=== PATIENT | female | born 1935 | race Caucasian/White ===

== ENCOUNTER 2017-05-21 16:52 | Inpatient (IN) | payer OTHER ==
[~2017-05-21] VITALS: Ht 165.1 cm; Wt 70.7 kg
[2017-05-21] MEDS ORDERED: SODIUM CHLORIDE FLUSH 10ML SYR IVF ONE (17:30)
[2017-05-21 17:43] LABS: BASOPHILS # (AUTO) 0.03 x10^3/uL (0-0.1); BASOPHILS % (AUTO) 0 % (0-1); EOSINOPHILS # (AUTO) 0.01 x10^3/uL (0-0.4); EOSINOPHILS % (AUTO) 0 % (1-7); LYMPHOCYTES # (AUTO) 1.27 x10^3/uL (1-3.4); LYMPHOCYTES % (AUTO) 17 % (22-44); MD NO; MEAN CORPUSCULAR HEMOGLOBIN 30.7 pg (27.0-34.8); MEAN CORPUSCULAR HGB CONC 33.5 g/dL (32.4-35.8); MEAN CORPUSCULAR VOLUME 91.5 fL (80-100); MEAN PLATELET VOLUME 7.4 fL (7.4-10.4); MONOCYTES # (AUTO) 0.37 x10^3/uL (0.2-0.8); MONOCYTES % (AUTO) 5 % (2-9); NEUTROPHILS # (AUTO) 5.95 x10^3/uL (1.8-6.8); NEUTROPHILS % (AUTO) 78 % (42-75); PLATELET COUNT 228 x10^3/uL (130-400); RED BLOOD COUNT 5.49 x10^6/uL (3.82-5.3); RED CELL DISTRIBUTION WIDTH 13.6 % (9.6-15.2)
[2017-05-21 17:49] LABS: ALANINE AMINOTRANSFERASE 7 U/L (12-78); ALBUMIN 3.7 g/dL (3.4-5.0); ANION GAP 9 mmol/L (5-15); CALCIUM 9.2 mg/dL (8.5-10.1); CHLORIDE 110 mmol/L (98-107); CREATININE 0.73 mg/dL (0.55-1.02)
[2017-05-21 17:51] LABS: ALKALINE PHOSPHATASE 53 U/L (45-117); BILIRUBIN,TOTAL 0.6 mg/dL (0.2-1.0); TOTAL PROTEIN 7.4 g/dL (6.4-8.2)
[2017-05-21 17:59] LABS: MICROSCOPIC INDICATED
[2017-05-21] MEDS ORDERED: CEFTRIAXONE PMX 1GM/50ML 50 ML ONE (18:11)
[2017-05-21 18:16] LABS: CULTURE INDICATED? YES
[2017-05-21] MEDS ORDERED: CEFTRIAXONE PMX 1GM/50ML 50 ML IVPB ONE (18:30)
[2017-05-21] MEDS ORDERED: LEVO88TA2 PO (20:30)
[2017-05-21] MEDS ORDERED: SIMV20TA3 PO (20:30)
[2017-05-21] MEDS ORDERED: DULO30CA2 PO (20:30)
[2017-05-21] MEDS ORDERED: GABA300C10 PO (20:30)
[2017-05-21] MEDS ORDERED: CYCL5TAB PO (20:30)
[2017-05-21] MEDS ORDERED: HYDR-3240 PO (20:30)
[2017-05-21] MEDS ORDERED: ESOM20CA PO (20:30)
[2017-05-21] MEDS ORDERED: CARB1TAB44 PO (20:30)
[2017-05-21] MEDS ORDERED: HYDROcodone/APAP 5/325 TABLET PO ONE (20:30)
[2017-05-21] MEDS ORDERED: CLON0.5T20 PO (20:30)
[2017-05-21] MEDS ORDERED: HYDROcodone/APAP 5/325 TABLET ONE (20:37)
[2017-05-21] MEDS ORDERED: ONDANSETRON 2MG/ML, 2ML IVPush PRN (21:00)
[2017-05-21] MEDS: CEFTRIAXONE PMX 1GM/50ML 50 ML IV SCH (21:19)
[2017-05-21] MEDS ORDERED: OMNIPAQUE 350 MG/ML, 100ML BOTTLE ONE (21:20)
[2017-05-21] MEDS: SIMVASTATIN 20 MG TABLET PO SCH (23:15)
[2017-05-21] MEDS: MELATONIN 5 MG TABLET PO SCH (23:16)
[2017-05-21] MEDS: CARBIDOPA/LEVODOPA CR 50 MG/200 MG TABLET PO SCH (23:16)
[2017-05-21] MEDS: GABAPENTIN 300 MG CAPSULE PO SCH (23:16)
[2017-05-21] MEDS: HEPARIN 5,000 UNITS/ML, 1ML SQ SCH (23:16)
[2017-05-21] MEDS: SODIUM CHLORIDE 0.9% 1,000 ML IV SCH (23:17)
[2017-05-22 01:27] VITALS: BP 163/91
[2017-05-22 05:37] LABS: ANION GAP 7 mmol/L (5-15); CALCIUM 9.1 mg/dL (8.5-10.1); CHLORIDE 108 mmol/L (98-107)
[2017-05-22 05:42] LABS: CREATININE 0.69 mg/dL (0.55-1.02)
[2017-05-22] MEDS: LEVOTHYROXINE 88 MCG TABLET PO SCH (05:48)
[2017-05-22] MEDS: HEPARIN 5,000 UNITS/ML, 1ML SQ SCH ×3 (05:48→22:28)
[2017-05-22 07:49] VITALS: BP 151/79
[2017-05-22] MEDS: GABAPENTIN 300 MG CAPSULE PO SCH ×3 (10:23→22:28)
[2017-05-22] MEDS: DULOXETINE 30 MG CAPSULE.DR PO SCH (10:23)
[2017-05-22] MEDS: CARBIDOPA/LEVODOPA CR 50 MG/200 MG TABLET PO SCH ×3 (10:23→22:28)
[2017-05-22 13:46] VITALS: BP 96/66
[2017-05-22] MEDS: SODIUM CHLORIDE 0.9% 1,000 ML IV SCH (16:19)
[2017-05-22] MEDS: CYCLOBENZAPRINE 10 MG TABLET PO PRN (18:27)
[2017-05-22 19:41] VITALS: BP 105/75
[2017-05-22] MEDS: MELATONIN 5 MG TABLET PO SCH (22:28)
[2017-05-22] MEDS: SIMVASTATIN 20 MG TABLET PO SCH (22:28)
[2017-05-22] MEDS: CEFTRIAXONE PMX 1GM/50ML 50 ML IV SCH (22:43)
[2017-05-23 00:35] VITALS: BP 166/83
[2017-05-23 05:00] LABS: BASOPHILS # (AUTO) 0.03 x10^3/uL (0-0.1); BASOPHILS % (AUTO) 0 % (0-1); EOSINOPHILS # (AUTO) 0.03 x10^3/uL (0-0.4); EOSINOPHILS % (AUTO) 0 % (1-7); LYMPHOCYTES # (AUTO) 2.39 x10^3/uL (1-3.4); LYMPHOCYTES % (AUTO) 33 % (22-44); MD NO; MEAN CORPUSCULAR HEMOGLOBIN 30.4 pg (27.0-34.8); MEAN CORPUSCULAR HGB CONC 32.9 g/dL (32.4-35.8); MEAN CORPUSCULAR VOLUME 92.2 fL (80-100); MEAN PLATELET VOLUME 7.4 fL (7.4-10.4); MONOCYTES # (AUTO) 0.52 x10^3/uL (0.2-0.8); MONOCYTES % (AUTO) 7 % (2-9); NEUTROPHILS # (AUTO) 4.23 x10^3/uL (1.8-6.8); NEUTROPHILS % (AUTO) 59 % (42-75); PLATELET COUNT 235 x10^3/uL (130-400); RED BLOOD COUNT 5.19 x10^6/uL (3.82-5.3); RED CELL DISTRIBUTION WIDTH 13.9 % (9.6-15.2)
[2017-05-23 05:15] LABS: ANION GAP 8 mmol/L (5-15); CALCIUM 8.9 mg/dL (8.5-10.1); CHLORIDE 111 mmol/L (98-107)
[2017-05-23 05:16] LABS: CREATININE 0.75 mg/dL (0.55-1.02)
[2017-05-23] MEDS: HEPARIN 5,000 UNITS/ML, 1ML SQ SCH ×3 (06:31→20:18)
[2017-05-23] MEDS: LEVOTHYROXINE 88 MCG TABLET PO SCH (06:31)
[2017-05-23 06:53] VITALS: BP 180/99
[2017-05-23] MEDS: GABAPENTIN 300 MG CAPSULE PO SCH ×3 (08:08→20:18)
[2017-05-23] MEDS: DULOXETINE 30 MG CAPSULE.DR PO SCH (08:08)
[2017-05-23] MEDS: CARBIDOPA/LEVODOPA CR 50 MG/200 MG TABLET PO SCH ×3 (08:09→20:18)
[2017-05-23 08:10] VITALS: BP 174/84
[2017-05-23] MEDS: POTASSIUM CHLORIDE 20 MEQ TAB.ER.PRT PO SCH ×2 (09:52→16:39)
[2017-05-23 13:48] VITALS: BP 157/75
[2017-05-23] MEDS: ACETAMINOPHEN 325 MG TABLET PO PRN ×2 (14:09→20:18)
[2017-05-23] MEDS: CYCLOBENZAPRINE 10 MG TABLET PO PRN (14:10)
[2017-05-23 14:15] LABS: CLOSTRIDIUM DIFFICILE ANTIGEN NEGATIVE; CLOSTRIDIUM DIFFICILE TOXIN NEGATIVE (Negative)
[2017-05-23 19:13] VITALS: BP 160/85
[2017-05-23] MEDS: MELATONIN 5 MG TABLET PO SCH (20:18)
[2017-05-23] MEDS: SIMVASTATIN 20 MG TABLET PO SCH (20:18)
[2017-05-23] MEDS: CEFTRIAXONE PMX 1GM/50ML 50 ML IV SCH (20:19)
[2017-05-24 00:39] VITALS: BP 159/76
[2017-05-24] MEDS: ACETAMINOPHEN 325 MG TABLET PO PRN ×3 (03:03→16:20)
[2017-05-24] MEDS: LEVOTHYROXINE 88 MCG TABLET PO SCH (05:30)
[2017-05-24] MEDS: HEPARIN 5,000 UNITS/ML, 1ML SQ SCH ×4 (05:30→20:48)
[2017-05-24 05:46] LABS: ANION GAP 9 mmol/L (5-15); CHLORIDE 113 mmol/L (98-107)
[2017-05-24 05:48] LABS: CREATININE 0.75 mg/dL (0.55-1.02)
[2017-05-24 07:10] VITALS: BP 170/110
[2017-05-24] MEDS: CARBIDOPA/LEVODOPA CR 50 MG/200 MG TABLET PO SCH ×3 (11:12→20:34)
[2017-05-24] MEDS: DULOXETINE 30 MG CAPSULE.DR PO SCH (11:13)
[2017-05-24] MEDS: GABAPENTIN 300 MG CAPSULE PO SCH ×3 (11:14→20:34)
[2017-05-24] MEDS: POTASSIUM CHLORIDE 20 MEQ TAB.ER.PRT PO SCH (11:14)
[2017-05-24] MEDS: CYCLOBENZAPRINE 10 MG TABLET PO PRN ×2 (11:15→16:20)
[2017-05-24 13:13] VITALS: BP 136/87
[2017-05-24 18:59] VITALS: BP 170/89
[2017-05-24] MEDS: CEFTRIAXONE PMX 1GM/50ML 50 ML IV SCH (20:34)
[2017-05-24] MEDS: SIMVASTATIN 20 MG TABLET PO SCH (20:34)
[2017-05-24] MEDS: MELATONIN 5 MG TABLET PO SCH (20:36)
[2017-05-25 02:53] VITALS: BP 141/84
[2017-05-25] MEDS: ACETAMINOPHEN 325 MG TABLET PO PRN ×2 (03:08→09:25)
[2017-05-25] MEDS: HEPARIN 5,000 UNITS/ML, 1ML SQ SCH ×3 (04:43→21:00)
[2017-05-25] MEDS: LEVOTHYROXINE 88 MCG TABLET PO SCH (05:56)
[2017-05-25] MEDS: CYCLOBENZAPRINE 10 MG TABLET PO PRN ×2 (06:01→09:25)
[2017-05-25 07:50] VITALS: BP 148/90
[2017-05-25] MEDS: GABAPENTIN 300 MG CAPSULE PO SCH ×3 (09:25→21:01)
[2017-05-25] MEDS: CARBIDOPA/LEVODOPA CR 50 MG/200 MG TABLET PO SCH ×3 (09:25→21:01)
[2017-05-25] MEDS: DULOXETINE 30 MG CAPSULE.DR PO SCH (09:25)
[2017-05-25 13:41] VITALS: BP 149/90
[2017-05-25 19:21] VITALS: BP 131/82
[2017-05-25] MEDS: MELATONIN 5 MG TABLET PO SCH (21:01)
[2017-05-25] MEDS: SIMVASTATIN 20 MG TABLET PO SCH (21:01)
[2017-05-26 01:22] VITALS: BP 149/83
[2017-05-26] MEDS: HEPARIN 5,000 UNITS/ML, 1ML SQ SCH ×2 (05:00→13:47)
[2017-05-26] MEDS: LEVOTHYROXINE 88 MCG TABLET PO SCH (05:11)
[2017-05-26] MEDS: CYCLOBENZAPRINE 10 MG TABLET PO PRN (05:12)
[2017-05-26 08:05] VITALS: BP_SYST 166; BP_SYST 171; BP_DIAS 90; BP_DIAS 92
[2017-05-26] MEDS: DULOXETINE 30 MG CAPSULE.DR PO SCH (10:11)
[2017-05-26] MEDS: CARBIDOPA/LEVODOPA CR 50 MG/200 MG TABLET PO SCH (10:11)
[2017-05-26] MEDS: GABAPENTIN 300 MG CAPSULE PO SCH (10:11)
== END 2017-05-26 14:05 | disposition home or self-care (01) | DRG 56 ==
LOC: SUATTDRO 20:34 → ED 21:04 → EDIP 21:29 → 3NE 22:52
PROVIDERS: ADMIT Hospitalist; ATTEND Hospitalist
PROC: 0T9B70Z Drainage of Bladder with Drainage Device, Via Natural or Artificial Opening (ICD-10-PCS; principal; 2017-05-21)
DX: G20 Parkinson's disease (principal); G93.40 Encephalopathy, unspecified; I67.1 Cerebral aneurysm, nonruptured; G30.1 Alzheimer's disease with late onset; F02.81 Dementia in other diseases classified elsewhere, unspecified severity, with behavioral disturbance; N39.0 Urinary tract infection, site not specified; B96.4 Proteus (mirabilis) (morganii) as the cause of diseases classified elsewhere; E03.9 Hypothyroidism, unspecified; K21.9 Gastro-esophageal reflux disease without esophagitis; G89.29 Other chronic pain; M54.9 Dorsalgia, unspecified
CPT/HCPCS: 36415; 70450; 70496; 71045; 80048; 80053; 81001; 83605; 83735; 84100; 84145; 85025; 86480; 87077; 87086; 87186; 87324; 96365; J0696; J1644; Q9967; 92523-GN; J7030

== ENCOUNTER 2017-12-07 13:13 | Day surgery (SDC) | payer OTHER ==
[~2017-12-07] VITALS: Ht 166.4 cm; Wt 67.0 kg
[~2017-12-07 13:13] MED LIST: CARB1TAB44 PO; CLON0.5T20 PO; CYCL5TAB PO; DULO30CA2 PO; ESOM20CA PO; GABA300C10 PO; HYDR-3240 PO; LEVO88TA2 PO; SIMV20TA3 PO
[2017-12-07] MEDS ORDERED: LACTATED RINGERS 1,000 ML IV SCH (14:19)
[2017-12-07 14:25] VITALS: BP 182/103
[2017-12-07] MEDS ORDERED: HYDR-3245 PO (14:25)
[2017-12-07] MEDS ORDERED: ESCI10TA10 PO (14:25)
[2017-12-07] MEDS ORDERED: BUPIVACAINE/PF-EPI 0.5% 1:200K ONE (15:17)
[2017-12-07] MEDS ORDERED: ACETAMINOPHEN 500 MG TABLET PO ONE (15:30)
[2017-12-07] MEDS ORDERED: GABAPENTIN 300 MG CAPSULE PO ONE (15:30)
[2017-12-07] MEDS ORDERED: OXYcodone IR 5MG TABLET PO ONE (15:30)
[2017-12-07] MEDS ORDERED: ROCURONIUM 10 MG/ML,10ML ONE (15:40)
[2017-12-07] MEDS ORDERED: CEFAZOLIN 1,000 MG ONE (15:40)
[2017-12-07] MEDS ORDERED: NEOSTIGMINE 1 MG/ML, 10ML ONE (15:40)
[2017-12-07] MEDS ORDERED: ONDANSETRON 2MG/ML, 2ML ONE (15:40)
[2017-12-07] MEDS ORDERED: PROPOFOL 10 MG/ML, 20ML ONE (15:40)
[2017-12-07] MEDS ORDERED: GLYCOPYRROLATE 0.2MG/1ML, 5ML ONE (15:40)
[2017-12-07] MEDS ORDERED: DEXAMETHASONE 4 MG/ML, 1ML ONE (15:40)
[2017-12-07] MEDS ORDERED: MIDAZOLAM 1 MG/ML, 2ML ONE (15:43)
[2017-12-07] MEDS ORDERED: FENTANYL PF 250 MCG/5ML ONE (15:45)
[2017-12-07] MEDS ORDERED: KETOROLAC 30 MG/1 ML IV PRN (16:00)
[2017-12-07] MEDS ORDERED: ALBUTEROL SULFATE 2.5 MG/3 ML NPPB PRN (16:00)
[2017-12-07] MEDS ORDERED: OXYcodone 5 MG/5 ML ORAL.SOL UDC PO PRN (16:00)
[2017-12-07] MEDS ORDERED: PROMETHAZINE 25 MG/ML, 1ML IV PRN (16:00)
[2017-12-07] MEDS ORDERED: hydrALAzine 20 MG/ML, 1ML IV PRN (16:00)
[2017-12-07] MEDS ORDERED: FENTANYL PF 100 MCG/2ML IV PRN (16:00)
[2017-12-07] MEDS ORDERED: MEPERIDINE/PF 25MG/0.5ML IVPush PRN (16:00)
[2017-12-07] MEDS ORDERED: HYDROmorphone 1 MG/ML, 1ML IV PRN (16:00)
[2017-12-07] MEDS ORDERED: METOCLOPRAMIDE 5 MG/ML, 2ML IV PRN (16:00)
[2017-12-07] MEDS ORDERED: LABETALOL 5MG/ML, 20ML IV PRN (16:00)
[2017-12-07] MEDS ORDERED: ONDANSETRON 2MG/ML, 2ML IVPush PRN ×2 (16:00→19:00)
[2017-12-07] MEDS ORDERED: OXYcodone 5 MG/5 ML ORAL.SOL UDC ONE (17:27)
== END 2017-12-07 20:59 | disposition home or self-care (01) ==
LOC: OUT 13:13 → 4NOR 17:58 → OUT 20:59
PROVIDERS: ATTEND Orthopaedic Surgery
DX: M20.092 Other deformity of left finger(s) (principal); M65.332 Trigger finger, left middle finger; I10 Essential (primary) hypertension
CPT/HCPCS: 26055; 93005; J0690; J1100; J2250; J2405; J2704; J2710; J3010; J3490; J7120; G0378

== ENCOUNTER → 2017-12-23 | Outpatient (CLI) | payer OTHER ==
[~2017-12-23] MED LIST changes: +ESCI10TA10 PO; +HYDR-3245 PO
== END | disposition home or self-care (01) ==
LOC: CFH 14:38
PROVIDERS: ATTEND Neurological Surgery
DX: I72.8 Aneurysm of other specified arteries (principal); Q27.8 Other specified congenital malformations of peripheral vascular system
CPT/HCPCS: 70544